=== PATIENT | male | born 1935 | race Caucasian/White ===

== ENCOUNTER 2017-10-26 06:27 | Emergency (ER) | payer MEDICARE, OTHER ==
[~2017-10-26] VITALS: Ht 180.3 cm; Wt 108.6 kg
[~2017-10-26 06:27] MED LIST: ACET325S8 PO; ASPI325T PO; BENAPOW2 PO; DOXA1 PO; DUONI NEB; HYDR10TA16 PO; LOVA40TA PO; METO25 PO; MILKSUS5 PO; OXYC-360 PO; TRAM50TA PO
[2017-10-26 06:31] VITALS: BP 132/82; PULSE 68; RESP 20; TEMP 97.8; O2SAT 97
[2017-10-26 06:47] VITALS: BP 132/82; PULSE 68; RESP 20; TEMP 97.8; O2SAT 97
[2017-10-26 06:58] VITALS: BP 140/77; PULSE 68; RESP 18; O2SAT 95
[2017-10-26] MEDS ORDERED: METO25TA3 PO (06:58)
[2017-10-26] MEDS ORDERED: LOSA50TA PO (06:58)
[2017-10-26] MEDS ORDERED: ASPI-516 CHEW (06:58)
[2017-10-26] MEDS ORDERED: DOXA1TAB35 PO (06:58)
--- NOTE | 2017-10-26 07:28 | PD ---
HPI Chief Complaint: GI Complaint Time Seen by Provider: 07:26 Travel History International Travel<30 days: No Contact w/Intl Traveler<30days: No Traveled to known affect area: No History of Present Illness HPI Patient is an 82 year old male presents to the ER for evaluation of gas pains. Patient states that this has been going on for more than 5 years. 5 years ago he was seen by GI doctor and cardiology and had to have CABGx2. He states that it been seen by brain wave technician several times at that time and ultimately was referred to a molder operator as no other symptoms could be isolated. His molder operator did a stress test on him and ultimately recommended him for bypass surgery. The patient recently retired as a foundation director 4 weeks ago and that is when he started noticing the gas was getting worse. He thinks that either being not as active he is not clearing the gas as well or that he is just noticing it more. He denies any symptoms from the diaphragm up, denies any chest pain shortness of breath for me. Denies any fevers. He states his been sometime since he has had a stress test. He cannot think of any alleviating or exacerbating factors, states his symptoms are moderate, duration as above, context as above. PFSH Past Medical History Hx Anticoagulant Therapy: Yes (Aspirin) Asthma: Yes Autoimmune Disease: No Heart Rhythm Problems: No Cancer: No Cardiovascular Problems: Yes (CABG) High Cholesterol: Yes Chemotherapy: No Congestive Heart Failure: Yes (this admission) Patient Takes Glucophage: No Endocrine: No Gastrointestinal Disorders: Yes (stomach infection by endoscopy) GERD: No Genitourinary: No Hypertension: Yes Immune Disorder: No Musculoskeletal: No Neurologic: No Psychiatric: No Respiratory: Yes (BRONCHITIS) Radiation Therapy: No Sickle Cell Disease: No Sleep Apnea: No Influenza Vaccination: Yes Past Surgical History Coronary Artery Bypass Graft: Yes Social History Alcohol Use: No Tobacco Use: No Substance Use: No Allergies-Medications (Allergen,Severity, Reaction): Coded Allergies: No Known Allergies (Verified Adverse Reaction, Unknown, 10/26/17) Reported Meds & Prescriptions Reported Meds & Active Scripts Active Reported Doxazosin (Doxazosin Mesylate) 2 Mg Tab 2 Mg PO DAILY Aspirin 81 Mg Chew 81 Mg CHEW DAILY Metoprolol Tartrate 25 Mg Tab 25 Mg PO BID Losartan (Losartan Potassium) 50 Mg Tab 50 Mg PO DAILY Review of Systems Except as stated in HPI: all other systems reviewed are Neg Physical Exam Narrative GENERAL: Well-developed well-nourished, overweight, no obvious distress SKIN: Focused skin assessment warm/dry. HEAD: Atraumatic. Normocephalic. EYES: Pupils equal and round. No scleral icterus. No injection or drainage. ENT: No nasal bleeding or discharge. Mucous membranes pink and moist. NECK: Trachea midline. No JVD. CARDIOVASCULAR: Regular rate and rhythm. No murmur appreciated. RESPIRATORY: No accessory muscle use. Clear to auscultation. Breath sounds equal bilaterally. GASTROINTESTINAL: Abdomen soft, non-tender, nondistended. Hepatic and splenic margins not palpable. No rebound no percussive tenderness, normal active bowel sounds, no CVA tenderness MUSCULOSKELETAL: No obvious deformities. No clubbing. No cyanosis. No edema. NEUROLOGICAL: Awake and alert. No obvious cranial nerve deficits. Motor grossly within normal limits. Normal speech. PSYCHIATRIC: Appropriate mood and affect; insight and judgment normal. Data Data Last Documented VS Vital Signs Date Time Temp Pulse Resp B/P (MAP) Pulse Ox O2 Delivery O2 Flow Rate FiO2 10/26/17 09:00 62 16 146/86 (106) 100 Room Air 10/26/17 06:47 97.8 Orders Orders Electrocardiogram (10/26/17 07:41) Complete Blood Count With Diff (10/26/17 07:41) Comprehensive Metabolic Panel (10/26/17 07:41) Magnesium (Mg) (10/26/17 07:41) Prothrombin Time / Inr (Pt) (10/26/17 07:41) Act Partial Throm Time (Ptt) (10/26/17 07:41) Troponin I (10/26/17 07:41) Chest, Single Ap (10/26/17 07:41) Ecg Monitoring (10/26/17 07:41) Iv Access Insert/Monitor (10/26/17 07:41) Oximetry (10/26/17 07:41) Oxygen Administration (10/26/17 07:41) Sodium Chloride 0.9% Flush (Ns Flush) (10/26/17 07:45) Abdomen, Upright Only (10/26/17 ) Ed Discharge Order (10/26/17 09:35) Labs Laboratory Tests Test 10/26/17 07:50 White Blood Count 6.8 TH/MM3 Red Blood Count 5.00 MIL/MM3 Hemoglobin 15.3 GM/DL Hematocrit 45.2 % Mean Corpuscular Volume 90.4 FL Mean Corpuscular Hemoglobin 30.5 PG Mean Corpuscular Hemoglobin Concent 33.8 % Red Cell Distribution Width 13.4 % Platelet Count 267 TH/MM3 Mean Platelet Volume 7.2 FL Neutrophils (%) (Auto) 67.2 % Lymphocytes (%) (Auto) 18.5 % Monocytes (%) (Auto) 10.1 % Eosinophils (%) (Auto) 1.6 % Basophils (%) (Auto) 2.6 % Neutrophils # (Auto) 4.5 TH/MM3 Lymphocytes # (Auto) 1.3 TH/MM3 Monocytes # (Auto) 0.7 TH/MM3 Eosinophils # (Auto) 0.1 TH/MM3 Basophils # (Auto) 0.2 TH/MM3 CBC Comment DIFF FINAL Differential Comment Prothrombin Time 11.1 SEC Prothromb Time International Ratio 1.1 RATIO Activated Partial Thromboplast Time 28.3 SEC Blood Urea Nitrogen 14 MG/DL Creatinine 1.00 MG/DL Random Glucose 107 MG/DL Total Protein 6.8 GM/DL Albumin 3.5 GM/DL Calcium Level 8.8 MG/DL Magnesium Level 2.2 MG/DL Alkaline Phosphatase 37 U/L Aspartate Amino Transf (AST/SGOT) 28 U/L Alanine Aminotransferase (ALT/SGPT) 45 U/L Total Bilirubin 0.8 MG/DL Sodium Level 137 MEQ/L Potassium Level 4.4 MEQ/L Chloride Level 106 MEQ/L Carbon Dioxide Level 23.7 MEQ/L Anion Gap 7 MEQ/L Estimat Glomerular Filtration Rate 72 ML/MIN Troponin I LESS THAN 0.02 NG/ML [facility] Medical Decision Making Medical Screen Exam Complete: Yes Emergency Medical Condition: Yes Differential Diagnosis Indigestion, celiac disease, ACS seems unlikely, SD seems unlikely, obstruction seems highly unlikely Narrative Course Patient room to the emergency department, gas pains without any nausea vomiting or diarrhea. No chest pain no shortness of breath. Initial workup including chest x-ray upright abd are reassuring, troponin negative, EKG negative. Discussed with the patient that given his symptoms of gas pains led to him having bypass and his last time he had these symptoms I had offered him admission for consideration of stress test and further workup for cardiac etiology. He declined stating he would rather follow-up with Dr. Hidalgo as an outpatient. Think this is reasonable he will call this afternoon to make an appointment next week. Otherwise no definitive cause of his abdominal gas pains has been identified. Given the chronic nature I highly doubt any emergent causes. At this time he is stable for discharge and outpatient workup Diagnosis Primary Impression: Abdominal bloating Referrals: Viviana Hidalgo MD, Harsh Verdhan MD Disposition: 01 DISCHARGE HOME Condition: Stable Paul Osorio MD Oct 26, 2017 07:28
[2017-10-26] MEDS ORDERED: SODIUM CHLORIDE 0.9% FLUSH 10 ML FLUSH IVF PRN (07:45)
[2017-10-26 07:55] VITALS: BP 135/81; PULSE 64; RESP 18; O2SAT 97
[2017-10-26 08:01] LABS: AUTOMATED NEUTROPHIL # 4.5 TH/MM3 (1.8-7.7); BASOPHIL # 0.2 TH/MM3 (0-0.2); BASOPHIL % 2.6 % (0.0-2.0); EOSINOPHIL # 0.1 TH/MM3 (0-0.4); EOSINOPHIL % 1.6 % (0.0-4.0); HEMATOCRIT 45.2 % (39.0-51.0); HEMOGLOBIN 15.3 GM/DL (13.0-17.0); LYMPH % 18.5 % (9.0-44.0); LYMPHOCYTE # 1.3 TH/MM3 (1.0-4.8); MEAN CELL VOLUME 90.4 FL (80.0-100.0); MEAN CORPUSCULAR HEMOGLOBIN 30.5 PG (27.0-34.0); MEAN CORPUSCULAR HGB CONC 33.8 % (32.0-36.0); MEAN PLATELET VOLUME 7.2 FL (7.0-11.0); MONO % 10.1 % (0.0-8.0); MONOCYTE # 0.7 TH/MM3 (0-0.9); NEUT % 67.2 % (16.0-70.0); PLATELET COUNT 267 TH/MM3 (150-450); RED CELL DISTRIBUTION WIDTH 13.4 % (11.6-17.2); WHITE BLOOD COUNT 6.8 TH/MM3 (4.0-11.0)
[2017-10-26 08:10] LABS: CHLORIDE 106 MEQ/L (98-107); SODIUM (NA) 137 MEQ/L (136-145)
[2017-10-26 08:13] LABS: ALBUMIN 3.5 GM/DL (3.4-5.0); BICARBONATE 23.7 MEQ/L (21.0-32.0); CALCIUM 8.8 MG/DL (8.5-10.1); GLUCOSE,RANDOM 107 MG/DL (74-106); MAGNESIUM 2.2 MG/DL (1.5-2.5)
[2017-10-26 08:14] LABS: BLOOD UREA NITROGEN 14 MG/DL (7-18); INTERNATIONAL NORMALIZED RATIO 1.1 RATIO; PROTHROMBIN TIME - PATIENT 11.1 SEC (9.8-11.6)
[2017-10-26 08:16] LABS: ALT (GPT) 45 U/L (12-78)
[2017-10-26 08:17] LABS: AST (GOT) 28 U/L (15-37); GLOMERULAR FILTRATION RATE 72 ML/MIN (>89)
[2017-10-26 08:18] LABS: TOTAL BILIRUBIN ADULT 0.8 MG/DL (0.2-1.0); TOTAL PROTEIN 6.8 GM/DL (6.4-8.2)
[2017-10-26 08:19] LABS: ALKALINE PHOSPHATASE 37 U/L (45-117)
[2017-10-26 08:22] LABS: TROPONIN I LESS THAN 0.02 NG/ML (0.02-0.05)
--- NOTE | 2017-10-26 08:23 | RADRPT ---
EXAM DATE/TIME: 10/26/2017 07:43 [facility] COMPARISON: No previous studies available for comparison. INDICATIONS : Gas Pains. Short of breath MEDICAL HISTORY : Hypertension. Hypercholesterolemia. Congestive heart failure. Asthma. Bronchitis SURGICAL HISTORY : CABG. ENCOUNTER: Initial ACUITY: 1 day PAIN SCORE: 5/10 LOCATION: Bilateral chest FINDINGS: A single view of the chest demonstrates the lungs to be symmetrically aerated without evidence of mas s, infiltrate or effusion. Sternal wire form previous bypass Osseous structures are intact. CONCLUSION: No acute disease. Juanito Machado MD FACR on October 26, 2017 at 8:13 Board Certified Radiologist. This report was verified electronically.
--- NOTE | 2017-10-26 08:56 | RADRPT ---
EXAM DATE/TIME: 10/26/2017 07:43 [facility] COMPARISON: No previous studies available for comparison. INDICATIONS : Gas pains. Short of breath MEDICAL HISTORY : Hypertension. Hypercholesterolemia. Congestive heart failure. Asthma. Bronchitis SURGICAL HISTORY : CABG. ENCOUNTER: Initial ACUITY: 1 day PAIN SCORE: 4/10 LOCATION: Abdomen FINDINGS: A single erect view of the abdomen demonstrates the lower lungs to be clear. No evidence of free int raperitoneal gas. The visualized bowel loops are unremarkable. CONCLUSION: Negative. Juanito Machado MD FACR on October 26, 2017 at 8:52 Board Certified Radiologist. This report was verified electronically.
[2017-10-26 09:00] VITALS: BP 146/86; PULSE 62; RESP 16; O2SAT 100
--- NOTE | 2017-10-26 19:57 | EKG ---
Date Performed: 10/26/2017 Time Performed: 08:09:17 PTAGE: 82 years EKG: Sinus rhythm RIGHT BUNDLE BRANCH BLOCK ABNORMAL ECG Since the PREVIOUS TRACING , no significant change noted PREVIOUS TRACIN12/17/2012 04.03 DOCTOR: Jc Gordon Interpretating Date/Time 10/26/2017 19:55:50
== END 2017-10-26 09:45 | disposition home or self-care (01) ==
LOC: PHED 06:27
DX: R14.0 Abdominal distension (gaseous) (principal); E78.00 Pure hypercholesterolemia, unspecified; I11.0 Hypertensive heart disease with heart failure; I50.9 Heart failure, unspecified; J45.909 Unspecified asthma, uncomplicated; Z95.1 Presence of aortocoronary bypass graft; Z79.82 Long term (current) use of aspirin; Z79.899 Other long term (current) drug therapy
CPT/HCPCS: 71045; 74018; 80053; 83735; 84484; 85025; 85610; 85730; 93005; 99285

== ENCOUNTER 2017-11-03 07:56 | Emergency (ER) | payer OTHER ==
[~2017-11-03] VITALS: Ht 180.3 cm; Wt 107.0 kg
[~2017-11-03 07:56] MED LIST changes: -ACET325S8 PO; +ASPI-516 CHEW; -ASPI325T PO; -BENAPOW2 PO; -DOXA1 PO; +DOXA1TAB35 PO; -DUONI NEB; -HYDR10TA16 PO; +LOSA50TA PO; -LOVA40TA PO; -METO25 PO; +METO25TA3 PO; -MILKSUS5 PO; -OXYC-360 PO; -TRAM50TA PO
[2017-11-03 07:58] VITALS: BP 129/67; PULSE 69; RESP 16; TEMP 97.8; O2SAT 97
--- NOTE | 2017-11-03 08:26 | PD ---
HPI Chief Complaint: GI Complaint Time Seen by Provider: 08:18 Travel History International Travel<30 days: No Contact w/Intl Traveler<30days: No Traveled to known affect area: No History of Present Illness HPI Patient presents with persistent abdominal pain. Recent evaluation on 10/26 with negative findings. Evaluated by cardiology with a stress test scheduled Sunday and Sunday. Consultation with gastroenterology scheduled for Sunday. Presents today with persistent abdominal discomfort and new complaints of chest discomfort with bilateral shoulder pain. Increased gas and bloating is apparently a chronic issue over several years but has worsened since he retired. Positive history of cardiac disease. Denies diaphoresis or shortness of breath. Nondiabetic. Non-smoker. Pain is 6 out of 10. Described as dull and constant. He is passing gas. Last bowel movement on but very small. States that it is black in color. Denies any nausea or vomiting. Denies any urinary symptoms. PFSH Past Medical History Hx Anticoagulant Therapy: Yes (Aspirin) Asthma: Yes Autoimmune Disease: No Heart Rhythm Problems: No Cancer: No Cardiovascular Problems: Yes (CABG) High Cholesterol: Yes Chemotherapy: No Congestive Heart Failure: Yes (this admission) Endocrine: No Gastrointestinal Disorders: Yes (stomach infection by endoscopy) GERD: No Genitourinary: No Hypertension: Yes Immune Disorder: No Musculoskeletal: No Neurologic: No Psychiatric: No Respiratory: Yes (BRONCHITIS) Radiation Therapy: No Sickle Cell Disease: No Sleep Apnea: No Past Surgical History Coronary Artery Bypass Graft: Yes Social History Alcohol Use: No Tobacco Use: No Substance Use: No Allergies-Medications (Allergen,Severity, Reaction): Coded Allergies: No Known Allergies (Verified Adverse Reaction, Unknown, 11/03/17) Reported Meds & Prescriptions Reported Meds & Active Scripts Active Reported Rosuvastatin (Rosuvastatin Calcium) 20 Mg Tab 20 Mg PO DAILY Amlodipine Besylate 100 % Powder 5 Mg PO DAILY Doxazosin (Doxazosin Mesylate) 2 Mg Tab 2 Mg PO DAILY Aspirin 81 Mg Chew 81 Mg CHEW DAILY Metoprolol Tartrate 25 Mg Tab 25 Mg PO BID Losartan (Losartan Potassium) 50 Mg Tab 50 Mg PO DAILY Review of Systems General / Constitutional: No: Fever Eyes: No: Visual changes HENT: No: Headaches Cardiovascular: Positive: Chest Pain or Discomfort Respiratory: No: Shortness of Breath Gastrointestinal: Positive: Abdominal Pain Genitourinary: No: Dysuria Musculoskeletal: No: Pain Skin: No Rash Neurologic: No: Weakness Psychiatric: No: Depression Endocrine: No: Polydipsia Hematologic/Lymphatic: No: Easy Bruising Physical Exam Narrative GENERAL: Well-nourished, well-developed patient. SKIN: Focused skin assessment warm/dry. HEAD: Normocephalic. EYES: No scleral icterus. No injection or drainage. NECK: Supple, trachea midline. No JVD or lymphadenopathy. CARDIOVASCULAR: Regular rate and rhythm without murmurs, gallops, or rubs. RESPIRATORY: Breath sounds equal bilaterally. No accessory muscle use. GASTROINTESTINAL: Abdomen soft, non-tender, nondistended. MUSCULOSKELETAL: No cyanosis, or edema. BACK: Nontender without obvious deformity. No CVA tenderness. Data Data Last Documented VS Vital Signs Date Time Temp Pulse Resp B/P (MAP) Pulse Ox O2 Delivery O2 Flow Rate FiO2 11/03/17 08:40 98 Room Air 11/03/17 07:58 97.8 69 16 129/67 (87) Orders Orders Complete Blood Count With Diff (11/03/17 08:20) Comprehensive Metabolic Panel (11/03/17 08:20) Ct Abd/Pel W Iv Contrast(Rout) (11/03/17 08:20) Iv Access Insert/Monitor (11/03/17 08:20) Ecg Monitoring (11/03/17 08:20) Oximetry (11/03/17 08:20) Pantoprazole Inj (Protonix Inj) (11/03/17 08:30) Sodium Chloride 0.9% Flush (Ns Flush) (11/03/17 08:30) Al-Mag Hy-Si 40-40-4 Mg/Ml Liq (Mag-Al P (11/03/17 08:30) Lidocaine 2% Viscous (Xylocaine 2% Visco (11/03/17 08:30) Electrocardiogram (11/03/17 08:20) Ckmb (Isoenzyme) Profile (11/03/17 08:20) Troponin I (11/03/17 08:20) CKMB (11/03/17 08:40) CKMB% (11/03/17 08:40) Iohexol 350 Inj (Omnipaque 350 Inj) (11/03/17 09:14) Labs Laboratory Tests Test 11/03/17 08:40 White Blood Count 6.8 TH/MM3 Red Blood Count 4.85 MIL/MM3 Hemoglobin 15.1 GM/DL Hematocrit 44.0 % Mean Corpuscular Volume 90.9 FL Mean Corpuscular Hemoglobin 31.3 PG Mean Corpuscular Hemoglobin Concent 34.4 % Red Cell Distribution Width 13.1 % Platelet Count 273 TH/MM3 Mean Platelet Volume 6.9 FL Neutrophils (%) (Auto) 68.8 % Lymphocytes (%) (Auto) 17.8 % Monocytes (%) (Auto) 11.1 % Eosinophils (%) (Auto) 1.3 % Basophils (%) (Auto) 1.0 % Neutrophils # (Auto) 4.6 TH/MM3 Lymphocytes # (Auto) 1.2 TH/MM3 Monocytes # (Auto) 0.8 TH/MM3 Eosinophils # (Auto) 0.1 TH/MM3 Basophils # (Auto) 0.1 TH/MM3 CBC Comment DIFF FINAL Differential Comment Blood Urea Nitrogen 16 MG/DL Creatinine 0.88 MG/DL Random Glucose 76 MG/DL Total Protein 6.9 GM/DL Albumin 3.6 GM/DL Calcium Level 9.0 MG/DL Alkaline Phosphatase 37 U/L Aspartate Amino Transf (AST/SGOT) 23 U/L Alanine Aminotransferase (ALT/SGPT) 42 U/L Total Bilirubin 0.8 MG/DL Sodium Level 141 MEQ/L Potassium Level 4.1 MEQ/L Chloride Level 110 MEQ/L Carbon Dioxide Level 24.3 MEQ/L Anion Gap 7 MEQ/L Estimat Glomerular Filtration Rate 83 ML/MIN Total Creatine Kinase 105 U/L Creatine Kinase MB 1.8 NG/ML Troponin I LESS THAN 0.02 NG/ML MDM Medical Decision Making Medical Screen Exam Complete: Yes Emergency Medical Condition: Yes Differential Diagnosis Gastritis, enteritis, acute coronary syndrome Narrative Course Assessment plan discussed with and at bedside. EKG revealed sinus rhythm rate of 60. Cardiac enzymes negative. Hemoccult negative Last 72 hours Impressions Abdomen/Pelvis CT 11/03/17 0820 Signed Impressions: Service Date/Time: Friday, November 03, 2017 08:55 - CONCLUSION: 1. Moderate diverticulosis with no inflammatory change. 2. Small anterior abdominal wall hernia containing mesenteric fat. 3. Unremarkable gallbladder. 4. Mild hepatic steatosis. 5. Normal appendix. Mathew Cuadra MD Diagnosis Primary Impression: Abdominal discomfort Patient Instructions: General Instructions Additional Instructions: Encouraged to keep regularly scheduled cardiology testing, encouraged to keep gastroenterology consult on Sunday. Encouraged a bland high-fiber brat diet. Encourage good fluid intake. Consider a liquid fiber supplement daily. Encouraged a daily probiotic. Return to the emergency room with any onset of new symptoms. Med/Other Pt SpecificInfo: Prescription(s) given Scripts Metronidazole (Flagyl) 500 Mg Tab 500 MG PO BID for Infection, #14 TAB 0 Refills Prov: Thuan Christiansen MD 11/03/17 Ciprofloxacin (Cipro) 500 Mg Tab 500 MG PO BID for Infection, #14 TAB 0 Refills Prov: Thuan Christiansen MD 11/03/17 Docusate Sodium (Colace) 100 Mg Capsule 100 MG PO BID for Prevent Constipation, #60 CAP 0 Refills Prov: Thuan Christiansen MD 11/03/17 Pantoprazole (Protonix) 40 Mg Tab 40 MG PO DAILY for Reflux, #30 TAB 0 Refills Prov: Thuan Christiansen MD 11/03/17 Disposition: 01 DISCHARGE HOME Condition: Good Thuan Christiansen MD Nov 03, 2017 08:26
[2017-11-03] MEDS ORDERED: ALUMINUM/MAGNESIUM/SIMETH 30 ML CUP PO ONE (08:30)
[2017-11-03] MEDS ORDERED: LIDOCAINE VISCOUS 2% SOLN 15 ML UDC PO ONE (08:30)
[2017-11-03] MEDS ORDERED: SODIUM CHLORIDE 0.9% FLUSH 10 ML FLUSH IV FLUSH PRN (08:30)
[2017-11-03] MEDS ORDERED: PANTOPRAZOLE SODIUM 40 MG VIAL IVP ONE (08:30)
[2017-11-03 08:40] VITALS: O2SAT 98
[2017-11-03 08:50] LABS: AUTOMATED NEUTROPHIL # 4.6 TH/MM3 (1.8-7.7); BASOPHIL # 0.1 TH/MM3 (0-0.2); EOSINOPHIL # 0.1 TH/MM3 (0-0.4); EOSINOPHIL % 1.3 % (0.0-4.0); HEMOGLOBIN 15.1 GM/DL (13.0-17.0); LYMPH % 17.8 % (9.0-44.0); LYMPHOCYTE # 1.2 TH/MM3 (1.0-4.8); MEAN CELL VOLUME 90.9 FL (80.0-100.0); MEAN CORPUSCULAR HEMOGLOBIN 31.3 PG (27.0-34.0); MEAN CORPUSCULAR HGB CONC 34.4 % (32.0-36.0); MEAN PLATELET VOLUME 6.9 FL (7.0-11.0); MONO % 11.1 % (0.0-8.0); MONOCYTE # 0.8 TH/MM3 (0-0.9); NEUT % 68.8 % (16.0-70.0); PLATELET COUNT 273 TH/MM3 (150-450); RED BLOOD COUNT 4.85 MIL/MM3 (4.50-5.90); RED CELL DISTRIBUTION WIDTH 13.1 % (11.6-17.2); WHITE BLOOD COUNT 6.8 TH/MM3 (4.0-11.0)
[2017-11-03 09:01] LABS: CHLORIDE 110 MEQ/L (98-107); SODIUM (NA) 141 MEQ/L (136-145)
[2017-11-03] MEDS ORDERED: AMLO1POW4 PO (09:02)
[2017-11-03] MEDS ORDERED: ROSU1TAB8 PO (09:02)
[2017-11-03 09:05] LABS: ALBUMIN 3.6 GM/DL (3.4-5.0); BICARBONATE 24.3 MEQ/L (21.0-32.0); BLOOD UREA NITROGEN 16 MG/DL (7-18); GLUCOSE,RANDOM 76 MG/DL (74-106)
[2017-11-03 09:07] LABS: ALT (GPT) 42 U/L (12-78)
[2017-11-03 09:08] LABS: AST (GOT) 23 U/L (15-37); CREATININE 0.88 MG/DL (0.60-1.30); GLOMERULAR FILTRATION RATE 83 ML/MIN (>89)
[2017-11-03 09:09] LABS: TOTAL BILIRUBIN ADULT 0.8 MG/DL (0.2-1.0); TOTAL PROTEIN 6.9 GM/DL (6.4-8.2)
[2017-11-03 09:10] LABS: ALKALINE PHOSPHATASE 37 U/L (45-117)
[2017-11-03 09:12] LABS: TROPONIN I LESS THAN 0.02 NG/ML (0.02-0.05)
[2017-11-03] MEDS ORDERED: IOHEXOL 350 MG/ML 10 ML VIAL (for RAD DIAG) IVCONTRAST ONE (09:14)
--- NOTE | 2017-11-03 09:25 | RADRPT ---
EXAM DATE/TIME: 11/03/2017 08:55 [facility] COMPARISON: No previous studies available for comparison. INDICATIONS : Worsening abdominal pain, bloating, black stool. IV CONTRAST: 75 cc Omnipaque 350 (iohexol) IV ORAL CONTRAST: No oral contrast ingested. RADIATION DOSE: 19.58 CTDIvol (mGy) MEDICAL HISTORY : Congestive heart failure. Hypertension. Hypercholesterolemia.Bronchitis SURGICAL HISTORY : CABG ENCOUNTER: Initial ACUITY: 1 week PAIN SCALE: 10/10 LOCATION: diffuse abdomen TECHNIQUE: Volumetric scanning of the abdomen and pelvis was performed. Using automated exposure control and ad justment of the mA and/or kV according to patient size, radiation dose was kept as low as reasonably achievable to obtain optimal diagnostic quality images. DICOM format image data is available electro nically for review and comparison. FINDINGS: LOWER LUNGS: The visualized lower lungs are clear. LIVER: Homogeneous density without lesion. There is no dilation of the biliary tree. No calcified gallston es. There is mild hepatic steatosis. The gallbladder is unremarkable. SPLEEN: Normal size without lesion. PANCREAS: Within normal limits. KIDNEYS: Normal in size and shape. There is no solid mass, stone or hydronephrosis. There are small apparent cysts in the right. ADRENAL GLANDS: Within normal limits. VASCULAR: There is no aortic aneurysm. BOWEL/MESENTERY: The stomach, small bowel, and colon demonstrate no acute abnormality. There is no free intraperitone al air or fluid. Multiple diverticuli are present greatest in the sigmoid colon. There is contrast th roughout the colon. There is a normal appendix. ABDOMINAL WALL: There is an anterior abdominal wall hernia mesenteric fat. It measures up to approximately 2 cm and c ontains no bowel. RETROPERITONEUM: There is no lymphadenopathy. BLADDER: No wall thickening or mass. REPRODUCTIVE: Within normal limits. INGUINAL: There is no lymphadenopathy or hernia. MUSCULOSKELETAL: Within normal limits for patient age. CONCLUSION: 1. Moderate diverticulosis with no inflammatory change. 2. Small anterior abdominal wall hernia containing mesenteric fat. 3. Unremarkable gallbladder. 4. Mild hepatic steatosis. 5. Normal appendix. Mathew Cuadra MD on November 03, 2017 at 9:19 Board Certified Radiologist. This report was verified electronically.
[2017-11-03] MEDS ORDERED: METR-1 PO (10:15)
[2017-11-03] MEDS ORDERED: PROT40TA PO (10:15)
[2017-11-03] MEDS ORDERED: COLA100C5 PO (10:15)
[2017-11-03] MEDS ORDERED: CIPR-9 PO (10:15)
[2017-11-03 10:38] VITALS: BP 144/76; PULSE 60; RESP 20; O2SAT 98
--- NOTE | 2017-11-03 18:18 | EKG ---
Date Performed: 11/03/2017 Time Performed: 08:37:46 PTAGE: 82 years EKG: Sinus rhythm Right bundle branch block Since the previous tracing, no significant change noted ABNORMAL ECG PREVIOUS TRACING : 10/26/2017 08.09 DOCTOR: Jc Gordon Interpretating Date/Time 11/03/2017 18:16:55
== END 2017-11-03 10:40 | disposition home or self-care (01) ==
LOC: PHED 07:56
DX: R10.9 Unspecified abdominal pain (principal); R07.89 Other chest pain; M25.512 Pain in left shoulder; M25.511 Pain in right shoulder; E78.00 Pure hypercholesterolemia, unspecified; I11.0 Hypertensive heart disease with heart failure; I50.9 Heart failure, unspecified; J45.909 Unspecified asthma, uncomplicated; Z95.1 Presence of aortocoronary bypass graft
CPT/HCPCS: 74177; 80053; 82550; 82552; 84484; 85025; 93005; 96374; 99285; C9113; Q9967

== ENCOUNTER 2017-11-12 15:15 | Emergency (ER) | payer OTHER ==
[~2017-11-12] VITALS: Ht 180.3 cm; Wt 106.8 kg
[~2017-11-12 15:15] MED LIST changes: +AMLO1POW4 PO; +CIPR-9 PO; +COLA100C5 PO; +METR-1 PO; +PROT40TA PO; +ROSU1TAB8 PO
[2017-11-12 15:26] VITALS: BP 172/90; PULSE 74; RESP 22; TEMP 98.2; O2SAT 96
--- NOTE | 2017-11-12 16:14 | RADRPT ---
EXAM DATE/TIME: 11/12/2017 15:40 [facility] COMPARISON: No previous studies available for comparison. INDICATIONS : Chest pain. MEDICAL HISTORY : None. SURGICAL HISTORY : CABG. ENCOUNTER: Initial ACUITY: 2 weeks PAIN SCORE: 10/10 LOCATION: Bilateral upper chest FINDINGS: PA and lateral views of the chest demonstrate the lungs to be symmetrically aerated without evidence of mass, infiltrate or effusion. The cardiomediastinal contours are unremarkable. Osseous structure s are intact. Prior median sternotomy and CABG with intact sternal wire sutures. CONCLUSION: No acute cardiopulmonary disease. Parish Suh MD on November 12, 2017 at 16:13 Board Certified Radiologist. This report was verified electronically.
[2017-11-12] MEDS ORDERED: SODIUM CHLORIDE 0.9% FLUSH 10 ML FLUSH IV FLUSH PRN (17:15)
--- NOTE | 2017-11-12 17:15 | PD ---
HPI Chief Complaint: Chest Pain Time Seen by Provider: 16:58 Travel History International Travel<30 days: No Contact w/Intl Traveler<30days: No Traveled to known affect area: No History of Present Illness HPI Patient comes to the emergency department complaining of sharp stabbing pain that radiates throughout his abdomen. Patient reports associated pain between his shoulder blades. Patient reports symptoms been ongoing for approximately 4 weeks or longer. Patient reports feelings of the abdominal pain got worse this morning around 430. Patient went to see his GI doctor and was told come to the emergency department for reevaluation. Patient reports he continues to have bowel movements but are firmer than normal. Patient reports that stool has become firmer since starting medication prescribed on previous ER visit.Patient reports that he has been taking Pepto-Bismol seem to help up until 4 days ago he quit taking it. Patient reports increased belching and flatulence seems to help alleviate his symptoms. Denies anything making symptoms worse. Denies any fevers, shortness of breath, chest pain, neck pain, loss or change in bladder, abdominal distention, or headaches. Severity mild to moderate. PFSH Past Medical History Hx Anticoagulant Therapy: Yes (Aspirin) Asthma: Yes Autoimmune Disease: No Heart Rhythm Problems: No Cancer: No Cardiovascular Problems: Yes (CABG) High Cholesterol: Yes Chemotherapy: No Congestive Heart Failure: Yes Endocrine: No Gastrointestinal Disorders: Yes (stomach infection by endoscopy) GERD: No Genitourinary: No Hypertension: Yes Immune Disorder: No Musculoskeletal: No Neurologic: No Psychiatric: No Respiratory: Yes (BRONCHITIS) Radiation Therapy: No Sickle Cell Disease: No Sleep Apnea: No Past Surgical History Coronary Artery Bypass Graft: Yes Social History Alcohol Use: No Tobacco Use: No Substance Use: No Allergies-Medications (Allergen,Severity, Reaction): Coded Allergies: No Known Allergies (Verified Adverse Reaction, Unknown, 11/03/17) Reported Meds & Prescriptions Reported Meds & Active Scripts Active Flagyl (Metronidazole) 500 Mg Tab 500 Mg PO BID Cipro (Ciprofloxacin HCl) 500 Mg Tab 500 Mg PO BID Colace (Docusate Sodium) 100 Mg Capsule 100 Mg PO BID Protonix (Pantoprazole Sodium) 40 Mg Tab 40 Mg PO DAILY Reported Rosuvastatin (Rosuvastatin Calcium) 20 Mg Tab 20 Mg PO DAILY Amlodipine Besylate 100 % Powder 5 Mg PO DAILY Doxazosin (Doxazosin Mesylate) 2 Mg Tab 2 Mg PO DAILY Aspirin 81 Mg Chew 81 Mg CHEW DAILY Metoprolol Tartrate 25 Mg Tab 25 Mg PO BID Losartan (Losartan Potassium) 50 Mg Tab 50 Mg PO DAILY Review of Systems Except as stated in HPI: all other systems reviewed are Neg Physical Exam Narrative GENERAL: Well-developed, overly nourished, in no acute distress, and non-ill appearing. SKIN: Focused skin assessment warm and dry. HEAD: Atraumatic. Normocephalic. EYES: Pupils equal and round. EOMI. No scleral icterus. No injection or drainage. ENT: No nasal bleeding or discharge. Mucous membranes pink and moist. NECK: Trachea midline. No JVD. Supple. No nuclear rigidity. CARDIOVASCULAR: Regular rate and rhythm. No murmur appreciated. Radial pulses 2+, intact, and equal bilaterally. RESPIRATORY: No accessory muscle use. No respiratory distress. Clear to auscultation. Breath sounds equal bilaterally. GASTROINTESTINAL: Abdomen soft, nondistended, and no guarding. Hepatic and splenic margins not palpable. Normal bowel sounds x4. No pulsatile mass. Patient reports tenderness in left lower quadrant to palpation. Umbilical hernia appreciated that is nontender. MUSCULOSKELETAL: No obvious deformities. No clubbing. No cyanosis. No edema. Full range of motion. NEUROLOGICAL: Awake and alert. No obvious cranial nerve deficits. Motor grossly within normal limits. Normal speech. PSYCHIATRIC: Appropriate mood and affect; insight and judgment normal. Data Data Last Documented VS Vital Signs Date Time Temp Pulse Resp B/P (MAP) Pulse Ox O2 Delivery O2 Flow Rate FiO2 11/12/17 18:45 69 17 154/92 (112) 96 11/12/17 17:09 Room Air 11/12/17 15:26 98.2 Orders Orders Electrocardiogram (11/12/17 15:28) Ckmb (Isoenzyme) Profile (11/12/17 15:28) Complete Blood Count With Diff (11/12/17 15:28) Comprehensive Metabolic Panel (11/12/17 15:28) Magnesium (Mg) (11/12/17 15:28) Prothrombin Time / Inr (Pt) (11/12/17 15:28) Act Partial Throm Time (Ptt) (11/12/17 15:28) Troponin I (11/12/17 15:28) Lipase (11/12/17 15:28) Chest, Pa & Lat (11/12/17 15:28) Ct Abd/Pel W/O Iv Contrast (11/12/17 17:10) Iv Access Insert/Monitor (11/12/17 17:10) Ecg Monitoring (11/12/17 17:10) Oximetry (11/12/17 17:10) Sodium Chloride 0.9% Flush (Ns Flush) (11/12/17 17:15) Simethicone Chew (Mylicon Chew) (11/12/17 17:45) CKMB (11/12/17 16:53) CKMB% (11/12/17 16:53) Ed Discharge Order (11/12/17 18:36) Al-Mag Hy-Si 40-40-4 Mg/Ml Liq (Mag-Al P (11/12/17 18:45) Lidocaine 2% Viscous (Xylocaine 2% Visco (11/12/17 18:45) Labs Laboratory Tests Test 11/12/17 16:53 White Blood Count 7.1 TH/MM3 Red Blood Count 5.05 MIL/MM3 Hemoglobin 15.7 GM/DL Hematocrit 46.1 % Mean Corpuscular Volume 91.3 FL Mean Corpuscular Hemoglobin 31.1 PG Mean Corpuscular Hemoglobin Concent 34.1 % Red Cell Distribution Width 13.6 % Platelet Count 262 TH/MM3 Mean Platelet Volume 7.4 FL Neutrophils (%) (Auto) 66.3 % Lymphocytes (%) (Auto) 19.5 % Monocytes (%) (Auto) 12.0 % Eosinophils (%) (Auto) 1.7 % Basophils (%) (Auto) 0.5 % Neutrophils # (Auto) 4.7 TH/MM3 Lymphocytes # (Auto) 1.4 TH/MM3 Monocytes # (Auto) 0.9 TH/MM3 Eosinophils # (Auto) 0.1 TH/MM3 Basophils # (Auto) 0.0 TH/MM3 CBC Comment DIFF FINAL Differential Comment Prothrombin Time 11.1 SEC Prothromb Time International Ratio 1.1 RATIO Activated Partial Thromboplast Time 27.1 SEC Blood Urea Nitrogen 15 MG/DL Creatinine 1.28 MG/DL Random Glucose 88 MG/DL Total Protein 7.4 GM/DL Albumin 4.0 GM/DL Calcium Level 9.2 MG/DL Magnesium Level 2.1 MG/DL Alkaline Phosphatase 37 U/L Aspartate Amino Transf (AST/SGOT) 38 U/L Alanine Aminotransferase (ALT/SGPT) 61 U/L Total Bilirubin 0.9 MG/DL Sodium Level 139 MEQ/L Potassium Level 4.5 MEQ/L Chloride Level 105 MEQ/L Carbon Dioxide Level 27.4 MEQ/L Anion Gap 7 MEQ/L Estimat Glomerular Filtration Rate 54 ML/MIN Total Creatine Kinase 137 U/L Creatine Kinase MB 2.4 NG/ML Troponin I LESS THAN 0.02 NG/ML Lipase 123 U/L MDM Medical Decision Making Medical Screen Exam Complete: Yes Emergency Medical Condition: Yes Medical Record Reviewed: Yes Interpretation(s) EKG reviewed by Dr. Pandya shows sinus rhythm ventricular rate of 62. No STEMI. Last Impressions Abdomen/Pelvis CT 11/12/17 1710 Signed Impressions: Service Date/Time: Sunday, November 12, 2017 17:35 - CONCLUSION: 1. Redemonstration of 2.2 cm fat containing anterior bowel wall periumbilical hernia with subtle inflammatory change. Clinical correlation is recommended. 2. Otherwise, no acute abnormality in the abdomen or pelvis. 3. Stable ancillary findings, as above. Oral Kraft MD Chest X-Ray 11/12/17 1528 Signed Impressions: Service Date/Time: Sunday, November 12, 2017 15:40 - CONCLUSION: No acute cardiopulmonary disease. Parish Suh MD Differential Diagnosis Atypical chest pain, pneumonia, diverticulitis, gastritis, metabolic disturbance , ileus, SBO Narrative Course The patient presented with nonspecific abdominal pain. There was no significant history of vomiting or diarrhea and no fever. The patient appeared comfortable, well hydrated and the abdominal exam was mildly tender without guarding or rebound and no focal tenderness to me. Laboratory and radiologic/CT evaluation revealed no significant abnormalities. Umbilical hernia is nontender and do not suspect this to be the source of patient's discomfort. There was no evidence of an acute, surgical abdomen at this time. There was no clinical evidence to support appendicitis, bowel obstruction, cholecystitis/ cholelithiasis, pancreatitis, perforation of gastric ulcer, colitis, diverticulitis, bacterial peritonitis, obstruction, volvulus, hernial incarceration or strangulation at this time. There was no evidence to support vascular pathology such as AAA, mesenteric ischemia. There was also no clinical evidence by history, exam or risk factors to suggest atypical presentation of cardiac disease such as ACS, AMI or atypical angina. No evidence to suggest genitourinary etiology as well. Clinical picture was discussed with the patient , as well as plan of care. The patient was instructed to follow up with their physician and/or GI as well as general surgery for possible repair of umbilical hernia. Abdominal pain warnings were discussed with the patient. The patient is to return if worsens, pain worsens or changes, develop fever, inability to tolerate fluids with or without vomiting, unable to establish follow up or as needed. The patient agrees with plan. Patient in no obvious distress upon re-evaluation. All pertinent laboratory/ Radiology result(s) discussed with patient/family. Discussed patient with Dr. Pandya prior discharge, who reviewed patient's results and is in agreement with plan of care and disposition. Any questions/concerns in reference to patient diagnosis/condition discussed and clarified prior to patient's discharge. Reinforced sheer importance of close follow up with patient's primary physician or primary care clinic, GI, and or general surgery. Instructed patient to return to ED immediately, if symptoms return/worsen. Patient showed understanding of above instructions. Further instructions and recommendations were detailed in discharge paperwork. Patient ambulated without difficulty out of ED at discharge. Diagnosis Primary Impression: Abdominal pain Qualified Codes: R10.9 - Unspecified abdominal pain Additional Impression: Umbilical hernia Qualified Codes: K42.9 - Umbilical hernia without obstruction or gangrene Referrals: Tejas Carvalho MD Patient Instructions: Abdominal Pain (ED), General Instructions Additional Instructions: Follow-up with your primary care physician and GI doctor this week for reevaluation. Follow-up with general surgery as soon as possible regarding umbilical hernia for possible repair. Return to the emergency department if symptoms get worse. Disposition: 01 DISCHARGE HOME Condition: Stable Gallo Lemons Nov 12, 2017 17:15
[2017-11-12 17:43] LABS: AUTOMATED NEUTROPHIL # 4.7 TH/MM3 (1.8-7.7); BASOPHIL % 0.5 % (0.0-2.0); EOSINOPHIL # 0.1 TH/MM3 (0-0.4); EOSINOPHIL % 1.7 % (0.0-4.0); HEMATOCRIT 46.1 % (39.0-51.0); HEMOGLOBIN 15.7 GM/DL (13.0-17.0); LYMPH % 19.5 % (9.0-44.0); LYMPHOCYTE # 1.4 TH/MM3 (1.0-4.8); MEAN CELL VOLUME 91.3 FL (80.0-100.0); MEAN CORPUSCULAR HEMOGLOBIN 31.1 PG (27.0-34.0); MEAN CORPUSCULAR HGB CONC 34.1 % (32.0-36.0); MEAN PLATELET VOLUME 7.4 FL (7.0-11.0); MONOCYTE # 0.9 TH/MM3 (0-0.9); NEUT % 66.3 % (16.0-70.0); PLATELET COUNT 262 TH/MM3 (150-450); RED BLOOD COUNT 5.05 MIL/MM3 (4.50-5.90); RED CELL DISTRIBUTION WIDTH 13.6 % (11.6-17.2); WHITE BLOOD COUNT 7.1 TH/MM3 (4.0-11.0)
[2017-11-12] MEDS ORDERED: SIMETHICONE 80 MG CHEWABLE TAB CHEW ONE (17:45)
[2017-11-12 17:54] LABS: INTERNATIONAL NORMALIZED RATIO 1.1 RATIO; PROTHROMBIN TIME - PATIENT 11.1 SEC (9.8-11.6)
--- NOTE | 2017-11-12 17:59 | RADRPT ---
EXAM DATE/TIME: 11/12/2017 17:35 [facility] COMPARISON: CT ABDOMEN & PELVIS W CONTRAST, November 03, 2017, 8:55. INDICATIONS : Lower abdomen pain for one month. ORAL CONTRAST: No oral contrast ingested. RADIATION DOSE: 12.44 CTDIvol (mGy) MEDICAL HISTORY : Hypertension. Cardiovascular disease SURGICAL HISTORY : CABG ENCOUNTER: Initial ACUITY: 1 day PAIN SCALE: 7/10 LOCATION: Bilateral lower quadrant TECHNIQUE: Volumetric scanning of the abdomen and pelvis was performed. Using automated exposure control and ad justment of the mA and/or kV according to patient size, radiation dose was kept as low as reasonably achievable to obtain optimal diagnostic quality images. DICOM format image data is available electro nically for review and comparison. FINDINGS: LOWER LUNGS: The visualized lower lungs are clear. LIVER: Homogeneous density without lesion. There is no dilation of the biliary tree. No calcified gallston es. SPLEEN: Normal size without lesion. PANCREAS: Within normal limits. KIDNEYS: Kidneys are symmetrical in size. There is redemonstration of a 1.4 cm low density cystic lesion in th e anterior mid right kidne. No hydronephrosis or radiopaque renal calculi. ADRENAL GLANDS: Within normal limits. VASCULAR: There is no aortic aneurysm. BOWEL/MESENTERY: Moderate sigmoid diverticulosis without significant inflammatory change to suggest diverticulitis. Ap pendix is visualized and normal in appearance. No evidence for bowel obstruction. No free air or drai nable fluid collection. ABDOMINAL WALL: 2.2 cm fat containing anterior abdominal wall periumbilical hernia with subtle stranding. RETROPERITONEUM: There is no lymphadenopathy. BLADDER: No wall thickening or mass. REPRODUCTIVE: Within normal limits. INGUINAL: There is no lymphadenopathy or hernia. MUSCULOSKELETAL: Degenerative spondylosis of the lumbar spine. CONCLUSION: 1. Redemonstration of 2.2 cm fat containing anterior bowel wall periumbilical hernia with subtle infl ammatory change. Clinical correlation is recommended. 2. Otherwise, no acute abnormality in the abdomen or pelvis. 3. Stable ancillary findings, as above. Oral Kraft MD on November 12, 2017 at 17:49 Board Certified Radiologist. This report was verified electronically.
[2017-11-12 18:04] LABS: AST (GOT) 38 U/L (15-37); BICARBONATE 27.4 MEQ/L (21.0-32.0); BLOOD UREA NITROGEN 15 MG/DL (7-18); CALCIUM 9.2 MG/DL (8.5-10.1); CHLORIDE 105 MEQ/L (98-107); CREATININE 1.28 MG/DL (0.60-1.30); GLOMERULAR FILTRATION RATE 54 ML/MIN (>89); GLUCOSE,RANDOM 88 MG/DL (74-106); MAGNESIUM 2.1 MG/DL (1.5-2.5); SODIUM (NA) 139 MEQ/L (136-145)
[2017-11-12 18:09] LABS: ALKALINE PHOSPHATASE 37 U/L (45-117); ALT (GPT) 61 U/L (12-78); TOTAL BILIRUBIN ADULT 0.9 MG/DL (0.2-1.0); TOTAL PROTEIN 7.4 GM/DL (6.4-8.2); TROPONIN I LESS THAN 0.02 NG/ML (0.02-0.05)
[2017-11-12 18:45] VITALS: BP 154/92
[2017-11-12] MEDS ORDERED: ALUMINUM/MAGNESIUM/SIMETH 30 ML CUP PO ONE (18:45)
[2017-11-12] MEDS ORDERED: LIDOCAINE VISCOUS 2% SOLN 15 ML UDC PO ONE (18:45)
--- NOTE | 2017-11-12 21:50 | EKG ---
Date Performed: 11/12/2017 Time Performed: 16:59:18 PTAGE: 82 years EKG: Sinus rhythm RIGHT BUNDLE BRANCH BLOCK ABNORMAL ECG No significant change from prior electrocardiogram. PREVIOUS TRACING : 11/03/2017 08.37 DOCTOR: Wilton Herman Interpretating Date/Time 11/12/2017 21:50:15
== END 2017-11-12 18:53 | disposition home or self-care (01) ==
LOC: NEPC 15:15
DX: R10.30 Lower abdominal pain, unspecified (principal); K42.9 Umbilical hernia without obstruction or gangrene; E78.00 Pure hypercholesterolemia, unspecified; I11.0 Hypertensive heart disease with heart failure; I50.9 Heart failure, unspecified
CPT/HCPCS: 71046; 74176; 80053; 82550; 82552; 83690; 83735; 84484; 85025; 85610; 85730; 93005; 99285